=== PATIENT | male | born 2000 | race African-American/Black ===

== ENCOUNTER 2021-05-22 16:37 | Emergency (ER) | payer MEDICAID, OTHER ==
[~2021-05-22] VITALS: Ht 172.7 cm; Wt 54.4 kg
[2021-05-22 19:03] LABS: Urine Amorphous Crystal MOD /hpf (None Seen); Urine Bacteria FEW /hpf (None Seen); Urine Blood Negative /uL (Negative); Urine Mucus FEW (None Seen); Urine Specific Gravity 1.026 (1.001-1.035); Urine WBC 480 /hpf (0 - 3)
[2021-05-22] MEDS ORDERED: CEPH500C PO ×2 (20:15→20:42)
[2021-05-22 20:33] VITALS: BP 93/55
== END 2021-05-22 20:44 | disposition home or self-care (01) ==
LOC: ER 16:37
DX: N34.2 Other urethritis (principal)
CPT/HCPCS: 81001

== ENCOUNTER 2024-07-11 18:40 | Emergency (ER) | payer MEDICAID ==
[~2024-07-11] VITALS: Ht 180.3 cm; Wt 58.0 kg
[~2024-07-11 18:40] MED LIST: CEPH500C PO
--- NOTE | 2024-07-11 19:11 | ED.PDOC ---
Musculoskeletal HPI Comments 24-year-old male who came to ER via EMS for right shoulder pain. States he was punching a punching bag earlier, when he hit it at a wrong angle completely dislocating his right shoulder. No prior history of shoulder dislocations. 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 Allergies: Coded Allergies: NO KNOWN ALLERGIES (Unverified , 05/22/21) Home Meds Active Scripts Cephalexin Monohydrate (Cephalexin) 500 Mg Cap, 500 MG PO Q6HR, #12 MG Prov:WALKER MARTINEZ MD 05/22/21 Information Source: Patient, Emergency Med Personnel Mode of Arrival: EMS Location: Right Extremity Location: Shoulder Timing: Minutes Prehospital treatment: Treatment Severity: Moderate Able to Move Extremity: No Hand Dominance: Right Mechanism: Hyperextension Circumstances: Sporting, Accident Onset of Symptoms: Spontaneous Symptoms: Swelling, Pain Associated signs and symptoms: Shoulder pain (right) Past Medical History PAST MEDICAL HISTORY: Denies Surgical History: Denies all surgeries Family History Family History: Reviewed,noncontributory to illness Social History Smoker: Non-Smoker Alcohol: Denies ETOH Use Drugs: Denies Drug Use Lives In: Home Constitutional: denies: chills, diaphoresis, fatigue, fever, malaise, sweats, weakness, others EENTM: denies: blurred vision, double vision, ear bleeding, ear discharge, ear drainage, ear pain, ear ringing, eye pain, eye redness, hearing loss, mouth pain, mouth swelling, nasal discharge, nose bleeding, nose congestion, nose pain, photophobia, tearing, throat pain, throat swelling, voice changes, others Respiratory: denies: cough, hemoptysis, orthopnea, SOB at rest, shortness of breath, SOB with excertion, stridor, wheezing, others Cardiovascular: denies: chest pain, dizzy spells, diaphoresis, Dyspnea on exertion, edema, irregular heart beat, left arm pain, lightheadedness, palpitat ions, PND, syncope, others Gastrointestinal: denies: abdomen distended, abdominal pain, blood streaked bow els, constipated, diarrhea, dysphagia, difficulty swallowing, hematemesis, melena, nausea, poor appetite, poor fluid intake, rectal bleeding, rectal pain, vomiting, others Genitourinary: denies: burning, dysuria, flank pain, frequency, hematuria, incontinence, penile discharge, penile sore, pain, testicle pain, testicle swelling, urgency, others Neurological: denies: dizziness, fainting, headache, left sided numbness, left sided weakness, numbness, paresthesia, pre-existing deficit, right sided numbness, right sided weakness, seizure, speech problems, tingling, tremors, weakness, others Musculoskeletal: reports: joint swelling (Right shoulder); denies: back pain, gout, joint pain, muscle pain, muscle stiffness, neck pain, others Integumetry: denies: bruises, change in color, change in hair/nails, dryness, laceration, lesions, lumps, rash, wounds, others Allergic/Immunocompromised: denies: Difficulty Healing, Frequent Infections, Hives, Itching, others Hematologic/Lymphatic: denies: anemia, blood clots, easy bleeding, easy bruising, swollen glands, others Endocrine: denies: excessive hunger, excessive sweating, excessive thirst, excessive urination, flushing, intolerance to cold, intolerance to heat, unexplained weight gain, unexplained weight loss, others Psychiatric: denies: anxiety, bipolar disorder, depression, hopeless, panic disorder, schizophrenia, sleepless, suicidal, others Physical Exam General Appearance: No Apparent Distress, Normal HEENT: Normal ENT Inspection, Pharynx Normal, TMs Normal Neck: Full Range of Motion, Non-Tender, Normal, Normal Inspection Respiratory: Chest Non-Tender, Lungs Clear, No Accessory Muscle Use, No Respiratory Distress, Normal Breath Sounds Cardiovascular: No Edema, No JVD, No Murmur, No Gallop, Normal Peripheral Pulses, Regular Rate/Rhythm Breast Exam: Deferred Gastrointestinal: No Organomegaly, Non Tender, No Pulsatile Mass, Normal Bowel Sounds, Soft Genitalia: Deferred Pelvic: Deferred Rectal: Deferred Extremities: No calf tenderness, Normal capillary refill, No pedal edema, Swelling (and deformity right shoulder) Musculoskeletal : Apperance: Normal Neurologic: Alert, stove tender II-XII nml as Tested, No Motor Deficits, Normal Affect, Normal Mood, No Sensory Deficits Cerebellar Function: Normal Reflexes: Normal Skin: Dry, Normal Color, Warm Lymphatic: No Adenopathy Was a procedure done? Was a procedure done?: Yes Sedation Sedation?: Yes Informed consent obtained: Yes Sedation start time: 20:12 Sedation end time: 20:32 Sedation total time: 20 Reduction Indication: Dislocation (right shoulder) Sedation: Consents obtained, Sedation as ordered Intra-articular anesthetic yandy: No Post-reduction x-ray show: Reduction Informed consent obtained: Yes Risks/benefits/alt described: Yes Differential Diagnosis EXT Differential Diagnosis: Compartment Syndrome, Fracture, Sprain, Dislocation, Other X-Ray, Labs, Meds, VS Vital Signs Date Time Temp Pulse Resp B/P (MAP) Pulse Ox O2 Delivery O2 Flow Rate FiO2 07/11/24 19:23 97.8 69 18 126/74 (91) 98 97.8 Current Medications Medications (Trade) Dose Ordered Sig/Meron Route Start Time Stop Time Status Last Admin Propofol (Diprivan) 40 mg ONCE ONCE IV 07/11/24 19:00 07/11/24 19:01 DC 07/11/24 20:00 Ketamine HCl (Ketalar) 100 mg ONCE ONCE IV 07/11/24 19:00 07/11/24 19:01 DC 07/11/24 20:00 EXAM: XY R SHOULDER 2+ VIEW XRAY CLINICAL INDICATION: dislocation pain TECHNIQUE: XY R SHOULDER 2+ VIEW XRAY Comparison: None FINDINGS/IMPRESSION: There is no evidence of acute fracture Subcoracoid dislocation of the right shoulder The visualized joint space is well maintained. The alignment is anatomical. There is no radiopaque foreign body. Time of 1ST Reevaluation: 19:06 Reevaluation 1ST: Unchanged Patient Education/Counseling: Diagnosis, Treatment Family Education/Counseling: No Family Present Departure 1 Departure Time of Disposition: 20:47 Impression: Primary Impression: Dislocation of right shoulder joint Disposition: 01 HOME / SELF CARE / HOMELESS Condition: Stable Discharged With: Self, Relative Critical Care Note Critical Care Time?: No Stability Stability form required: No Heart Score Heart Score: Heart Score Response (Comments) Value History N/A 0 EKG N/A 0 Age N/A 0 Risk Factors N/A 0 Troponin N/A 0 Total 0 I personally scribed for JORDANA WALLER MD ([email or web address]) on 07/11/24 at 19:11. Electronically submitted by Angelito Vo ([facility]). I personally scribed for JORDANA WALLER MD ([email or web address] on 07/11/24 at 19:42. Electronically submitted by Angelito Vo ([email or web address]). JORDANA WALLER MD July 11, 2024 19:11
--- NOTE | 2024-07-11 19:33 | DVH ---
EXAM: XY R SHOULDER 2+ VIEW XRAY CLINICAL INDICATION: dislocation pain TECHNIQUE: XY R SHOULDER 2+ VIEW XRAY Comparison: None FINDINGS/IMPRESSION: There is no evidence of acute fracture Subcoracoid dislocation of the right shoulder The visualized joint space is well maintained. The alignment is anatomical. There is no radiopaque foreign body.
[2024-07-11] MEDS: PROPOFOL 10 MG/ML 20 ML IV ONE (20:00)
[2024-07-11] MEDS: KETAMINE 50mg/ML 10ml Vial (500mg/10ml) IV ONE (20:00)
--- NOTE | 2024-07-11 20:44 | DVH ---
CLINICAL INDICATION: R shoulder reduction TECHNIQUE: 1 radiographic view of the right shoulder were obtained. Comparison: XY R SHOULDER 2+ VIEW XRAY on DOS: 07/11/24 FINDINGS/IMPRESSION: Interval closed reduction of the dislocated right shoulder with the shoulder in anatomic alignment. N o evidence of acute traumatic fractures. Partially visualized lungs are clear.
[2024-07-11 21:00] VITALS: BP 126/73; PULSE 87; RESP 14; TEMP 98.6; O2SAT 96
== END 2024-07-11 21:00 | disposition home or self-care (01) ==
LOC: EDBD 18:40 → ER 18:41
DX: S43.004A Unspecified dislocation of right shoulder joint, initial encounter (principal); Z79.899 Other long term (current) drug therapy; W22.8XXA Striking against or struck by other objects, initial encounter; Y93.89 Activity, other specified; Y92.89 Other specified places as the place of occurrence of the external cause; Y99.8 Other external cause status
CPT/HCPCS: 23650; 73020; 73030; 99152; 99285; J2704